=== PATIENT | male | born 1995 | race Hispanic/Latino ===

== ENCOUNTER 2017-04-09 12:26 | Emergency (ER) | payer OTHER ==
[~2017-04-09] VITALS: Ht 162.6 cm; Wt 72.7 kg
[2017-04-09 12:26] VITALS: BP 125/70
[2017-04-09] MEDS ORDERED: ACET50TAOT PO (12:34)
--- NOTE | 2017-04-09 13:54 | REP ---
RIGHT HAND SERIES: Four views of the right hand are performed. There is a fracture of the mid shaft of the fourth metacarpal with mild anterior angulation. No other acute fracture or dislocation is seen. IMPRESSION: Mildly angulated fracture mid shaft fourth metacarpal. Signed by Musa Shetty MD 04/09/2017 03:54 P
[2017-04-09] MEDS ORDERED: IBUPROFEN 800 MG TAB PO ONE (14:30)
[2017-04-09] MEDS ORDERED: NORCOTAB PO (14:35)
== END 2017-04-09 14:47 | disposition home or self-care (01) ==
LOC: M ED 12:26
DX: S62.324A Displaced fracture of shaft of fourth metacarpal bone, right hand, initial encounter for closed fracture (principal); W22.8XXA Striking against or struck by other objects, initial encounter; Y92.018 Other place in single-family (private) house as the place of occurrence of the external cause; Y93.89 Activity, other specified; Y99.8 Other external cause status

== ENCOUNTER 2017-10-07 17:01 | Emergency (ER) | payer OTHER ==
[2017-10-07] MEDS: NORCO 5/325MG TABLET (BULK FOR ED) PO (18:47)
== END 2017-10-07 18:51 | disposition home or self-care (01) ==
LOC: M ED 17:01
DX: Z48.817 Encounter for surgical aftercare following surgery on the skin and subcutaneous tissue (principal)
CPT/HCPCS: 99283